=== PATIENT | male | born 1975 | race African-American/Black ===

== ENCOUNTER 2020-02-18 11:57 | Emergency (ER) | payer SELFPAY ==
--- NOTE | 2020-02-18 12:07 | ER Document Report ---
ED Medical Screen (RME) - General Chief Complaint: Shortness Of Breath Stated Complaint: SORE THROAT, SHORT OF BREATH Time Seen by Provider: 02/18/20 12:04 Mode of Arrival: Ambulatory Information source: Patient Notes: 44-year-old male presented to ED for shortness of breath x4 5 days. He states he is also had a fever he has not checked his temperature he was short of breath cough congestion body aches no change in smell or taste. He is short of breath at this time. He states he does smoke a pack 3 days no alcohol no drugs. States he does not have medical history. Will get flu strep CBC chemistry urine single view chest x-ray and cover test. The patient was evaluated during the global Covid 19 pandemic, and that diagnosis was suspected/considered upon their initial presentation. Their evaluation, treatment and testing was consistent with current guidelines for patients who present with complaints or symptoms that may be related to Covid 19. I have greeted and performed a rapid initial assessment of this patient. A comprehensive ED assessment and evaluation of the patient, analysis of test results and completion of medical decision making process will be conducted by an additional ED providers. TRAVEL OUTSIDE OF THE [place] IN LAST 30 DAYS: No - Related Data Allergies/Adverse Reactions: No Known Allergies Allergy (Verified 09/28/14 15:57) Past Medical History - Immunizations Hx Diphtheria, Pertussis, Tetanus Vaccination: Yes
[2020-02-18 12:29] LABS: A TYPE INFLUENZA AG NEGATIVE (NEGATIVE); B INFLUENZA AG NEGATIVE (NEGATIVE)
[2020-02-18 12:32] LABS: ABSOLUTE BASOPHILS # (AUTO) 0.1 10^3/uL (0.0-0.2); ABSOLUTE EOSINOPHILS # (AUTO) 0.2 10^3/uL (0.0-0.6); ABSOLUTE LYMPHOCYTES (AUTO) 2.5 10^3/uL (0.5-4.7); ABSOLUTE MONOCYTES (AUTO) 0.6 10^3/uL (0.1-1.4); BASOPHILS % (AUTO) 0.5 % (0-2); EOSINOPHILS % (AUTO) 1.5 % (0-6); HEMATOCRIT 48.4 % (37.9-51.0); HEMOGLOBIN 16.9 g/dL (13.5-17.0); LYMPHOCYTES % (AUTO) 23.8 % (13-45); MEAN CORPUSCULAR HEMOGLOBIN 30.9 pg (27.0-33.4); MEAN CORPUSCULAR VOLUME 88 fl (80-97); MONOCYTES % (AUTO) 6.2 % (3-13); PLATELET COUNT 257 10^3/uL (150-450); RED BLOOD COUNT 5.48 10^6/uL (4.35-5.55); TOTAL CELLS COUNTED % (AUTO) 100 %; WHITE BLOOD COUNT 10.3 10^3/uL (4.0-10.5)
[2020-02-18 12:50] LABS: ALBUMIN 4.9 g/dL (3.5-5.0); ALKALINE PHOSPHATASE 100 U/L (38-126); ANION GAP 15 (5-19); ASPARTATE AMINO TRANSFERASE 24 U/L (17-59); BILIRUBIN,DIRECT 0.3 mg/dL (0.0-0.4); BILIRUBIN,TOTAL 0.8 mg/dL (0.2-1.3); BLOOD UREA NITROGEN 10 mg/dL (7-20); CARBON DIOXIDE 22 mmol/L (22-30); CHLORIDE 105 mmol/L (98-107); GLUCOSE 142 mg/dL (75-110); POTASSIUM 4.2 mmol/L (3.6-5.0); TOTAL PROTEIN 8.4 g/dL (6.3-8.2)
--- NOTE | 2020-02-18 12:59 | RADIOLOGY REPORT (SQ) ---
EXAM DESCRIPTION: CHEST SINGLE VIEW IMAGES COMPLETED DATE/TIME: 02/18/2020 12:41 pm REASON FOR STUDY: Cough short of breath COMPARISON: None. EXAM PARAMETERS: NUMBER OF VIEWS: One view. TECHNIQUE: Single frontal radiographic view of the chest acquired. RADIATION DOSE: NA LIMITATIONS: None. FINDINGS: LUNGS AND PLEURA: No opacities, masses or pneumothorax. No pleural effusion. MEDIASTINUM AND HILAR STRUCTURES: No masses. Contour normal. HEART AND VASCULAR STRUCTURES: Heart normal in size. Normal vasculature. BONES: No acute findings. HARDWARE: None in the chest. OTHER: No other significant finding. IMPRESSION: NO ACUTE RADIOGRAPHIC FINDING IN THE CHEST. TECHNICAL DOCUMENTATION: JOB ID: [id number] 2010 [employer]- All Rights Reserved Reading location - IP/workstation name: [email or web address]
--- NOTE | 2020-02-18 14:21 | ER Document Report ---
Entered by BAHMAN WOODALL SCRIBE 02/18/20 1420 Acting as scribe for:NANCY HARDIN MD ED General - General Chief Complaint: Flu Symptoms Stated Complaint: SORE THROAT, SHORT OF BREATH Time Seen by Provider: 02/18/20 12:04 Mode of Arrival: Ambulatory Information source: Patient Notes: This 44 year old male patient presents to the ED today with complaints of short ness of breath for the past x5 days. Patient reports associated subjective fever, nonproductive cough, sore throat, and body aches. He mentions that he self-induces his vomit by sticking a finger down his throat. When asked about loss of taste or smell, he brings up poor appetite and then states that he has "all three" when the question was reiterated to him. Denies any known COVID exposure. TRAVEL OUTSIDE OF THE [place] IN LAST 30 DAYS: No - Related Data Allergies/Adverse Reactions: No Known Allergies Allergy (Verified 09/28/14 15:57) Past Medical History - General Information source: Patient - Social History Smoking Status: Unknown if Ever Smoked Smoking Education Provided: No Frequency of alcohol use: Occasional Family History: Reviewed & Not Pertinent Patient has suicidal ideation: No Patient has homicidal ideation: No - Immunizations Hx Diphtheria, Pertussis, Tetanus Vaccination: Yes Review of Systems - Review of Systems Constitutional: See HPI, Fever EENT: See HPI, Throat pain, Other - Loss of taste/smell Cardiovascular: No symptoms reported Respiratory: See HPI, Cough, Short of breath. denies: Sputum Gastrointestinal: See HPI, Poor appetite Genitourinary: No symptoms reported Male Genitourinary: No symptoms reported Musculoskeletal: See HPI, Muscle pain Skin: No symptoms reported Hematologic/Lymphatic: No symptoms reported Neurological/Psychological: No symptoms reported -: Yes All other systems reviewed and negative Physical Exam - Vital signs Vitals: Temp Pulse Resp BP Pulse Ox 98.8 F 74 20 138/84 H 99 02/18/20 12:04 02/18/20 12:04 02/18/20 12:04 02/18/20 12:04 02/18/20 12:04 - General General appearance: Alert In distress: None - HEENT Head: Normocephalic, Atraumatic Eyes: Normal Extraocular movements intact: Yes Pupils: PERRL Nasal: Normal Mouth/Lips: Normal Pharynx: Normal, Erythema - Mild. No: Exudate, Tonsillar hypertrophy Neck: Normal, Supple - Respiratory Respiratory status: No respiratory distress Chest status: Nontender Breath sounds: Normal Chest palpation: Normal - Cardiovascular Rhythm: Regular Heart sounds: Normal auscultation, S1 appreciated, S2 appreciated Murmur: No Friction rub: No Gallop: None auscultated - Abdominal Inspection: Normal Distension: No distension Bowel sounds: Normal Tenderness: Nontender - Abdomen soft Organomegaly: No organomegaly - Back Back: Normal, Nontender - Extremities General upper extremity: Normal inspection General lower extremity: Normal inspection. No: Edema - Neurological Neuro grossly intact: Yes Orientation: AAOx4 Ronda Coma Scale Eye Opening: Spontaneous Spencer Coma Scale Verbal: Oriented Spencer Coma Scale Motor: Obeys Commands Spencer Coma Scale Total: 15 - Psychological Associated symptoms: Normal affect, Normal mood - Skin Skin Temperature: Warm Skin Moisture: Dry Skin Color: Normal Course - Re-evaluation Re-evalutation: 02/18/20 14:55 Patient resting comfortably. - Vital Signs Vital signs: Temp Pulse Resp BP Pulse Ox 98.8 F 74 20 138/84 H 99 02/18/20 12:04 02/18/20 12:04 02/18/20 12:04 02/18/20 12:04 02/18/20 12:04 02/18/20 14:55 Vital signs stable. - Laboratory Result Diagrams: 02/18/20 12:20 02/18/20 12:20 Laboratory results interpreted by me: 02/18/20 12:20 Glucose 142 H Total Protein 8.4 H 02/18/20 14:56 Laboratories essentially within normal limits has normal results for influenza A or B both negative strep test negative and mild erythema in posterior oropharynx. - Diagnostic Test Radiology reviewed: Image reviewed, Reports reviewed Radiology results interpreted by me: 02/18/20 14:22 Chest X-Ray 02/18/20 12:08 IMPRESSION: NO ACUTE RADIOGRAPHIC FINDING IN THE CHEST. 02/18/20 14:57 Chest x-ray shows no acute process. No infiltrate. Discharge - Discharge Clinical Impression: Viral URI, Nausea, Suspected COVID-19 virus infection Condition: Stable Disposition: HOME, SELF-CARE Instructions: COVID-19 Guidance for Persons Under Investigation, Upper Respiratory Illness ([facility]) Additional Instructions: Nausea or Vomiting, Nonspecific Vomiting (or nausea without vomiting) can be caused by many different problems. Of course, it can mean that something's wrong with the stomach, such as "stomach flu," ulcers, or inflammation. But it can also be a symptom of a problem that has nothing to do with the stomach or intestines. Vomiting is common with severe headaches, earaches, and tonsillitis. We see it with pneu monia or heart attacks. Drugs can cause nausea. Many abdominal problems cause vomiting; for example, gallstones, kidney stones, pancreatitis, and intestinal obstruction (blocked bowels). In most cases, curing the vomiting depends on fixing the problem that caused it. For temporary relief, we may use an anti-nausea medicine. For home use, we can prescribe suppositories, chewable pills, pills that dissolve in the mouth, or liquid anti-nausea drugs. If the vomiting seems to be caused by a prob janes in the stomach, acid-suppressing drugs may be prescribed as well. It's important to avoid dehydration. Sip clear liquids. Take increasing amounts of fluid over the first 24 hours. Then start small amounts of bland foods (such as dry toast, applesauce, mashed potato). Avoid aspirin, tobacco, and alcohol. Gradually resume your usual diet. If the vomiting worsens, if the problem that's making you vomit worsens, or if there's evidence of bleeding in the stomach (such as black, tarry stool, bloody or black vomit, or lightheadedness), you should return immediately. Call your doctor if you aren't improved in 24 to 36 hours. Prescriptions: Ondansetron [Zofran Odt 4 mg Tablet] 1 - 2 tab PO Q4H PRN #15 tab.rapdis PRN Reason: For Nausea/Vomiting I personally performed the services described in the documentation, reviewed and edited the documentation which was dictated to the scribe in my presence, and it accurately records my words and actions.
[2020-02-18 15:02] LABS: APPEARANCE,URINE CLEAR; BILIRUBIN,URINE NEGATIVE (NEGATIVE); COLOR,URINE COLORLESS; GLUCOSE, URINE NEGATIVE (NEGATIVE); KETONES,URINE NEGATIVE (NEGATIVE); LEUKOCYTE ESTERASE,URINE NEGATIVE (NEGATIVE); NITRITE,URINE NEGATIVE (NEGATIVE); PROTEIN,URINE NEGATIVE (NEGATIVE); URINE SPECIFIC GRAVITY 1.002; UROBILINOGEN,URINE NEGATIVE mg/dL (<2.0)
[2020-02-18 15:15] LABS: URINE AMPHETAMINES SCREEN NEGATIVE; URINE BARBITURATES SCREEN NEGATIVE; URINE BENZODIAZEPINES SCREEN NEGATIVE; URINE MARIJUANA (THC) SCREEN NEGATIVE; URINE METHADONE SCREEN NEGATIVE; URINE PHENCYCLIDINE SCREEN NEGATIVE
[2020-02-18 15:16] LABS: URINE COCAINE SCREEN UNCONFIRMED POSITIVE
[2020-02-18 15:26] VITALS: BP 131/74
== END 2020-02-18 15:26 | disposition home or self-care (01) ==
LOC: ER 11:57
DX: J02.9 Acute pharyngitis, unspecified (principal); J06.9 Acute upper respiratory infection, unspecified; Z20.828 Contact with and (suspected) exposure to other viral communicable diseases; R06.02 Shortness of breath; R50.9 Fever, unspecified; R11.0 Nausea
CPT/HCPCS: 99284; 36415; 87070; 87880; 85025; 87635; 80053; 81001; 80307; 87804; 71045; C9803